=== PATIENT | male | born 2000 | race Caucasian/White ===

== ENCOUNTER 2021-11-05 10:41 | Emergency (ER) | payer OTHER, SELFPAY ==
[2021-11-05 10:49] VITALS: BP 126/55; PULSE 56; RESP 18; TEMP 36.6; O2SAT 99
--- NOTE | 2021-11-05 11:08 | ED.SKABFB ---
HPI - Skin/Abscess/Foreign Bdy General Chief complaint: Skin/Abscess/Foreign Body Stated complaint: Rash on hip and wrist Time Seen by Provider: 11/05/21 11:08 Source: patient, RN notes reviewed and old records reviewed Mode of arrival: ambulatory Limitations: no limitations History of Present Illness HPI narrative: 20 year old male who presents to [facility] care with complaints of rash to his left hip area and groin going around to other hip and along lower back and to inner aspect of right wrist, right 3rd finger, for the past 3 days which has increased. Patient reports that he has allergy to baking soda and some material dyes and gets a rash from these. Patient denies any contact with poisonous plants, no new foods, medication, no known new soaps,laundry detergents, or any new lotions. Patient states that he has been applying some moisturizing lotion to area and he took one Benadryl tab and he slept for several hours after taking medication. 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 MD complaint: rash Onset (ago): day(s) (3) Severity scale (1-10): 3 Treatments prior to arrival: other (moisturizing lotion) Related Data Allergies Allergy/AdvReac Type Severity Reaction Status Date / Time baking soda Allergy Rash Uncoded 11/05/21 11:03 Review of Systems Review of Systems: CONSTITUTIONAL: Denies fever, chills, or sweats. EYES: Denies visual changes, redness, or discharge. ENT: Denies rhinorrhea, congestion, sore throat, or otalgia. CARDIOVASCULAR: Denies chest pain, palpitations, or edema. RESPIRATORY: Denies cough or dyspnea. GASTROINTESTINAL: Denies abdominal pain, nausea, vomiting, or diarrhea. GENITOURINARY: Denies dysuria or hematuria. SKIN: Positive for rash to right inner wrist, groin area around to lower back with itching, right 3rd finger MUSCULOSKELETAL: Denies back pain, joint pain, or myalgia. NEUROLOGIC: Denies headache, numbness, or weakness. PSYCHIATRIC: Denies anxiety or depression. All systems reviewed & are unremarkable except as noted in HPI and below PMFSH Past Medical History Medical History (Updated 11/06/21 @ 14:34 by Dai Bocanegra NP) Eczema Fracture of phalanx of index finger left Surgical History Surgical History (Updated 11/06/21 @ 14:33 by Dai Bocanegra NP) No history of previous surgery Social History Social History (Updated 11/06/21 @ 14:32 by Dai Bocanegra NP) Smoking status: Never smoker Alcohol intake: never Substance use: never Living arrangements: with family Gender identity (if verbalized by the patient): Male Comments At time of signature, agree with nursing past medical, surgical, social and family history. There is no relevant family history pertinent to the presenting complaint Exam Narrative: GENERAL: Well-appearing, well-nourished, and in no acute distress. HEAD: Normocephalic, atraumatic. EYES: PERRLA and EOMI. ENT: Nares clear, no rhinorrhea or epistaxis. Mucous membranes moist.TM's normal with good light reflex, throat with mild redness, no lesions or exudate, no tonsil enlargement, NECK: Supple.no lymphadenopathy CHEST: Clear to auscultation. No respiratory distress.SA2O 99% on room air, no cough or any respiratory difficulty HEART: Regular rate and rhythm. No murmur heard. Normal peripheral pulses. ABDOMEN: Soft, nontender, nondistended, normal active bowel sounds. EXTREMITIES: Normal range of motion. No edema. SKIN: Warm, dry, red scattered rash to left hip and groin which radiates across back and to right hip and groin area which is itchy and irritating, also middle finger and right wrist NEURO: No focal deficits. Alert and oriented x3. Course Course Level of Care: Express Care Visit Vital Signs Vital signs: Vital Signs Temperature 36.6 C 11/05/21 10:49 Pulse Rate 56 L 11/05/21 10:49 Respiratory Rate 18 11/05/21 10:49 Blood Pressure 126/55 L 11/05
[2021-11-05] MEDS: methylPREDNISolone ACETATE 80 MG/ML VIAL IM (11:27)
== END 2021-11-05 11:50 | disposition home or self-care (01) ==
PROVIDERS: Emergency Provider Registered Nurse
DX: L25.9 Unspecified contact dermatitis, unspecified cause (principal)
CPT/HCPCS: 96372; 99203; G0463; J1040

== ENCOUNTER 2022-01-04 13:20 | Emergency (ER) | payer OTHER, SELFPAY ==
[2022-01-04 13:28] VITALS: BP 146/68; PULSE 69; RESP 16; TEMP 37.1; O2SAT 100
--- NOTE | 2022-01-04 14:09 | ED.GENADULT ---
HPI - General Adult General Chief complaint: Upper Respiratory Infection Stated complaint: Sore Throat Source: patient Mode of arrival: ambulatory Limitations: no limitations History of Present Illness HPI narrative: Patient presents for evaluation of sore throat for the last 3 days. She states that she had taken some ibuprofen that helped his symptoms. However he tried taking it today without any improvement. He now has bilateral otalgia. He denies any fever, chills, nausea, vomiting, or respiratory symptoms. No recent sick contacts to his knowledge. He did have COVID in the past. He does not smoke. No additional complaints or concerns. Related Data Allergies Allergy/AdvReac Type Severity Reaction Status Date / Time baking soda Allergy Rash Uncoded 11/05/21 11:03 Review of Systems Review of Systems: CONSTITUTIONAL: Denies fever, chills, or sweats. EYES: Denies visual changes, redness, or discharge. ENT: Reports sore throat and bilateral otalgia. Denies rhinorrhea or congestion CARDIOVASCULAR: Denies chest pain, palpitations, or edema. RESPIRATORY: Denies cough or dyspnea. GASTROINTESTINAL: Denies abdominal pain, nausea, vomiting, or diarrhea. GENITOURINARY: Denies dysuria or hematuria. SKIN: Denies rash or itching. MUSCULOSKELETAL: Denies back pain, joint pain, or myalgia. NEUROLOGIC: Denies headache, numbness, dizziness, or weakness. PSYCHIATRIC: Denies anxiety or depression. PMFSH Past Medical History Medical History Eczema Fracture of phalanx of index finger left Surgical History Surgical History No history of previous surgery Family History Family History Father Diabetes mellitus Social History Social History Smoking status: Never smoker Alcohol intake: never Substance use: never Living arrangements: with family Gender identity (if verbalized by the patient): Male Spiritual care concerns: No Exam Narrative: GENERAL: Well-appearing, well-nourished, and in no acute distress. HEAD: Normocephalic, atraumatic. EYES: PERRLA and EOMI. ENT: Nares clear, no rhinorrhea or epistaxis. Mucous membranes moist. Bilateral tonsillar enlargement with white exudate and erythema present. Uvula is midline. Bilateral TMs pearly rivera nonbulging NECK: Supple. No adenopathy or masses. No carotid bruits or JVD CHEST: Clear to auscultation. No respiratory distress. No wheezes rales or rhonchi HEART: Regular rate and rhythm. No murmur heard. Normal peripheral pulses. ABDOMEN: Soft, nontender, nondistended, normal active bowel sounds. EXTREMITIES: Normal range of motion. No edema. SKIN: Warm, dry, no rash. NEURO: No focal deficits. Alert and oriented x3. PSYCH: Normal mood and affect. Course Course Emergency Course: This is a 21-year-old male who presented for evaluation of sore throat and bilateral otalgia. Strep was positive. Given Decadron while here. Will discharge with amoxicillin. Follow-up outpatient for further evaluation and treatment and return for worsening symptoms. Patient in agreement with plan of care. Level of Care: Express Care Visit Vital Signs Vital signs: Vital Signs Temperature 37.1 C 01/04/22 13:28 Pulse Rate 69 01/04/22 13:28 Respiratory Rate 16 01/04/22 13:28 Blood Pressure 146/68 H 01/04/22 13:28 Pulse Oximetry 100 01/04/22 13:28 Oxygen Delivery Room Air 01/04/22 13:28 Temperature 37.1 C 01/04/22 13:28 Pulse Rate 135 H 01/04/22 13:54 Respiratory Rate 16 01/04/22 13:28 Blood Pressure 146/68 H 01/04/22 13:28 Pulse Oximetry 100 01/04/22 13:54 Oxygen Delivery Room Air 01/04/22 13:54 Medical Decision Making Vital Signs Vital Signs: Vital Signs Temperature 37.1 C 01/04/22 13:28 Pul
== END 2022-01-04 14:30 | disposition home or self-care (01) ==
PROVIDERS: Emergency Provider Nurse Practitioner
DX: J02.0 Streptococcal pharyngitis (principal)
CPT/HCPCS: 87880; 99213; G0463; J8540